=== PATIENT | male | born 1985 | race Caucasian/White ===

== ENCOUNTER 2017-04-24 13:16 | Emergency (ER) | payer BC, OTHER ==
[~2017-04-24] VITALS: Ht 177.8 cm; Wt 145.0 kg
[~2017-04-24 13:16] MED LIST: CELE200C PO; EPIP0.3I IM
[2017-04-24 13:18] VITALS: BP 141/92; PULSE 87; RESP 15; TEMP 98.2; O2SAT 99
--- NOTE | 2017-04-24 13:24 | PD ---
Physical Exam Time Seen by Provider: 13:22 Narrative 32yo M c/o R ear pain x 2 hours. Vomiting today; says his equilibrium is messed up. Denies fever, abd pain. Patient seen in triage. VS reviewed. Awaiting bed placement. Data Data Last Documented VS Vital Signs Date Time Temp Pulse Resp B/P Pulse Ox O2 Delivery O2 Flow Rate FiO2 04/24/17 13:18 98.2 87 15 141/92 99 MDM Supervised Visit with SCARLETT: Ximena cMkeon Apr 24, 2017 13:24
--- NOTE | 2017-04-24 13:41 | PD ---
HPI Chief Complaint: ENT Complaint Time Seen by Provider: 13:34 Travel History International Travel<30 days: No Contact w/Intl Traveler<30days: No Traveled to known affect area: No History of Present Illness HPI 32-year-old male presents the emergency Department with 2-3 hour history of increasing right ear pain, pressure, with vertigo and nausea. Pain in the right ear is 8 out of 10. Patient states he's had sinus congestion and trouble over the past couple of weeks. She states when he woke up this morning he felt fairly normal but as the morning progressed to get worse. Patient has vomited twice secondary to the nausea and vertigo symptoms. Patient has history of recurrent otitis media and sinusitis. Patient denies fever. He is currently nauseous but not having abdominal pain. He has no cough or shortness of breath. He has no chest pain. He is allergic to bumblebees with no medical condition allergies are noted. PFSH Past Medical History Cancer: No Cardiovascular Problems: No Diminished Hearing: No Endocrine: No Genitourinary: No Hepatitis: No Hiatal Hernia: Yes Immune Disorder: No Musculoskeletal: No Neurologic: No Psychiatric: No Reproductive: No Respiratory: No Past Surgical History Abdominal Surgery: No AICD: No Body Medical Devices: SCREWS IN JAW Cardiac Surgery: No Ear Surgery: No Endocrine Surgery: No Eye Surgery: No Genitourinary Surgery: No Gynecologic Surgery: No Joint Replacement: No Oral Surgery: Yes (TMJ SURGERY) Pacemaker: No Thoracic Surgery: No Social History Alcohol Use: Yes (4X/WK) Tobacco Use: No Substance Use: No Allergies-Medications (Allergen,Severity, Reaction): Coded Allergies: Bumble Bee (Verified Allergy, Severe, 04/24/17) THROAT CLOSES Reported Meds & Prescriptions Reported Meds & Active Scripts Active Celebrex (Celecoxib) 200 Mg Cap 200 Mg PO DAILY Reported Epipen (Epinephrine HCl) 0.3 Mg Inj 0.3 Mg IM DIRECTED GIVE IM IN THIGH, MAY REPEAT IF NEEDED Review of Systems Except as stated in HPI: all other systems reviewed are Neg General / Constitutional: No: Fever, Chills Eyes: No: Visual changes HENT: Positive: Headaches, Rhinitis, Rhinorrhea, Congestion, Earache, No: Vertigo, Lightheadedness, Sore Throat, Nosebleed, Neck Stiffness, Neck Pain, Gingival Bleeding, Dental Difficulties, Ear Discharge Cardiovascular: No: Chest Pain or Discomfort Respiratory: No: Cough, Shortness of Breath Gastrointestinal: Positive: Nausea, Vomiting, No: Abdominal Pain Genitourinary: No: Dysuria Musculoskeletal: No: Pain Skin: No Rash Neurologic: Positive: Other (vertigo), No: Weakness Psychiatric: No: Depression Endocrine: No: Polydipsia Hematologic/Lymphatic: No: Easy Bruising Physical Exam Narrative GENERAL: Patient appears in mild to moderate distress. SKIN: Warm and dry. Normal color. Normal turgor. HEAD: Atraumatic. Normocephalic. EYES: Pupils equal and round. No scleral icterus. No injection or drainage. Mild left going rotary nystagmus. ENT: No nasal bleeding or discharge. Mucous membranes pink and moist. Patient has moderate sinus pain in both frontal and maxillary sinuses more on the right than the left. Left TM appears normal. Right TM is dull, bulging, with pus present behind the TM. Pharynx is moderately irritated with postnasal drip and cobblestoning noted. Airway is otherwise normal with no significant tonsillitis. Uvula is midline. No signs of tonsillar abscess. NECK: Trachea midline. Supple and nontender. CARDIOVASCULAR: Regular rate and rhythm. RESPIRATORY: No accessory muscle use. Clear to auscultation. Breath sounds equal bilaterally. GASTROINTESTINAL: Abdomen soft, non-tender, nondistended. Hepatic and splenic margins not palpable. MUSCULOSKELETAL: Extremities without clubbing, cyanosis, or edema. No obvious deformities. NEUROLOGICAL: Awake and alert. No obvious cranial nerve deficits. Motor grossly within normal limits. Five out of 5 muscle strength in the arms and legs. Normal speech. PSYCHIATRIC: Appropriate mood and affect; insight and judgment normal. Data Data Last Documented VS Vital Signs Date Time Temp Pulse Resp B/P Pulse Ox O2 Delivery O2 Flow Rate FiO2 04/24/17 13:18 98.2 87 15 141/92 99 MDM Medical Decision Making Medical Screen Exam Complete: Yes Emergency Medical Condition: Yes Differential Diagnosis Acute purulent otitis media. Vertigo. Nausea and vomiting. Sinusitis. Narrative Course Patient is medically stable at time of exam. Patient is given Zofran 4 mg ODT by mouth. Patient is given ibuprofen 800 mg by mouth. Patient is given Augmentin 875 by mouth. Patient will be continued on Augmentin 875 twice a day 10 days. Patient is continued on ibuprofen 800 mg 3 times daily with food when necessary pain. #30 Patient is given Zofran 4 mg one every 6 hours when necessary nausea and vomiting. #15. Patient is given meclizine 25 mg one every 6 hours when necessary vertigo. #12. Patient started on Flonase nasal spray 2 sprays each nostril daily. Patient is to follow with his primary care physician or ear nose and throat doctor as needed. Patient was warned that is tympanic membrane may perforate. Patient can return to emergency Department with worsening symptoms if necessary. Diagnosis Primary Impression: Otitis media Qualified Code: H66.004 - Recurrent acute suppurative otitis media of right ear without spontaneous rupture of tympanic membrane Additional Impressions: Sinusitis Qualified Code: J01.41 - Acute recurrent pansinusitis Vertigo Nausea & vomiting Qualified Code: R11.2 - Non-intractable vomiting with nausea, unspecified vomiting type Patient Instructions: Benign Paroxysmal Positional Vertigo (ED), General Instructions, Otitis Media (ED), Sinusitis (ED) Additional Instructions: Patient is given Zofran 4 mg ODT by mouth. Patient is given ibuprofen 800 mg by mouth. Patient is given Augmentin 875 by mouth. Patient will be continued on Augmentin 875 twice a day 10 days. Patient is continued on ibuprofen 800 mg 3 times daily with food when necessary pain. #30 Patient is given Zofran 4 mg one every 6 hours when necessary nausea and vomiting. #15. Patient is given meclizine 25 mg one every 6 hours when necessary vertigo. #12. Patient started on Flonase nasal spray 2 sprays each nostril daily. Patient is to follow with his primary care physician or ear nose and throat doctor as needed. Patient was warned that is tympanic membrane may perforate. Patient can return to emergency Department with worsening symptoms if necessary. Med/Other Pt SpecificInfo: Prescription(s) given Disposition: 01 DISCHARGE HOME Condition: Stable Kirit Cherry Apr 24, 2017 13:41
[2017-04-24] MEDS ORDERED: FLUT1SPR5 EACH NARE (13:43)
[2017-04-24] MEDS ORDERED: ZOFR4TAB PO (13:43)
[2017-04-24] MEDS ORDERED: IBUP800T23 PO (13:43)
[2017-04-24] MEDS ORDERED: AUGM875T PO (13:43)
[2017-04-24] MEDS ORDERED: AMOXICILLIN/CLAVULANATE K 875 MG TAB PO ONE (13:45)
[2017-04-24] MEDS ORDERED: IBUPROFEN 800 MG TAB PO ONE (13:45)
[2017-04-24] MEDS ORDERED: MECLIZINE HCL 25 MG TAB PO ONE (13:45)
[2017-04-24] MEDS ORDERED: ONDANSETRON ODT 4 MG TAB PO ONE (13:45)
== END 2017-04-24 14:39 | disposition home or self-care (01) ==
LOC: NEPK 13:16
DX: H66.001 Acute suppurative otitis media without spontaneous rupture of ear drum, right ear (principal); J01.41 Acute recurrent pansinusitis; R42 Dizziness and giddiness; R11.2 Nausea with vomiting, unspecified
CPT/HCPCS: 99284